=== PATIENT | male | born 1990 | race Caucasian/White ===

== ENCOUNTER 2023-05-17 13:00 | Emergency (ER) | payer SELFPAY ==
[~2023-05-17] VITALS: Ht 180.3 cm; Wt 83.9 kg
[2023-05-17] MEDS ORDERED: MECLIZINE HCL 25 MG TABLET ONE (15:56)
[2023-05-17] MEDS ORDERED: MECLIZINE HCL 12.5 MG TABLET PO ONE (16:00)
[2023-05-17] MEDS ORDERED: MECL-159 PO (17:09)
[2023-05-17] MEDS ORDERED: FLUT16SP16 BNOSTRILS (17:09)
[2023-05-17 17:26] VITALS: BP 113/74; TEMP 98.3; O2SAT 100
== END 2023-05-17 17:26 | disposition home or self-care (01) ==
LOC: ER 13:20
DX: R42 Dizziness and giddiness (principal); Z60.2 Problems related to living alone
CPT/HCPCS: 99284; 70450; J8597